=== PATIENT | male | born 1945 | race Two or more races ===

== ENCOUNTER 2020-08-15 12:35 | Emergency (ER) | payer MEDICARE, OTHER ==
[~2020-08-15] VITALS: Ht 175.3 cm; Wt 77.3 kg
--- NOTE | 2020-08-15 12:47 | NUR ---
EKD done in triage.
--- NOTE | 2020-08-15 13:14 | NUR ---
PT BIB SELF VIA POV. PER PT HE HAD L CP THAT STARTED LAST NIGHT THAT FELT LIKE MILD PRESSURE. PT STATES HE HAS NO MEDICAL HX BESIDES HTN. PT STATES SYMPTOMS HAVE SUBSIDED AND HE HAS NO PAIN RIGHT NOW. PT RESTING IN [facility], MONITORING IN PLACE, [place] AT THIS TIME, [place].
[2020-08-15 13:17] LABS: BASOPHILS % (AUTO) 0 % (0-1); EOSINOPHILS % (AUTO) 1 % (1-7); LYMPHOCYTES % (AUTO) 11 % (22-44); MEAN CORPUSCULAR HEMOGLOBIN 33.3 pg (27.5-34.5); MEAN CORPUSCULAR HGB CONC 34.7 g/dL (33.2-36.2); MEAN PLATELET VOLUME 7.9 fL (7.4-10.4); MONOCYTES % (AUTO) 13 % (2-9); NEUTROPHILS % (AUTO) 74 % (42-75); PLATELET COUNT 242 x10^3/uL (130-400); RED BLOOD COUNT 4.68 x10^6/uL (4.38-5.82); RED CELL DISTRIBUTION WIDTH 13.4 % (9.4-14.8)
[2020-08-15] MEDS ORDERED: ASPIRIN 81 MG TABLET CHEW ONE ×2 (13:18→13:19)
[2020-08-15 14:00] LABS: ALBUMIN 3.8 g/dL (3.4-5.0); ANION GAP 11 mmol/L (5-15); CALCIUM 8.8 mg/dL (8.5-10.1); CHLORIDE 100 mmol/L (98-107)
[2020-08-15] MEDS ORDERED: ASPIRIN 81 MG TABLET CHEW PO ONE (14:00)
[2020-08-15 14:06] LABS: ALANINE AMINOTRANSFERASE 22 U/L (12-78); ALKALINE PHOSPHATASE 89 U/L (45-117); BILIRUBIN,TOTAL 0.8 mg/dL (0.2-1.0); CREATININE 1.02 mg/dL (0.7-1.3); TOTAL PROTEIN 7.9 g/dL (6.4-8.2); TROPONIN I < 0.015 ng/mL (0.000-0.045)
[2020-08-15 14:42] VITALS: BP 177/89
== END 2020-08-15 15:16 | disposition home or self-care (01) ==
LOC: ED 13:49
DX: M94.0 Chondrocostal junction syndrome [Tietze] (principal); R07.89 Other chest pain; I10 Essential (primary) hypertension
CPT/HCPCS: 36415; 71045; 80053; 84484; 85025; 93005; 99283